=== PATIENT | male | born 1985 | race Caucasian/White ===

== ENCOUNTER 2018-02-13 15:01 | Observation (INO) ==
[2018-02-13] MEDS ORDERED: Magnesium Sulfate Inj 2 GM in Sodium Chlor 0.9% Inj 96 ML IV.SIG ONE (19:00)
--- NOTE | 2018-02-13 21:43 | P.PNADD ---
Addendum to Inpatient Note Reason for Addendum: Additional Documentation Additional information: Added PRN albuterol nebulizer and patient breathing well now. IV Mag was not given in [place] and has been ordered for here. The nurse was concerned about giving it without a magnesium level check (which I suspect will be normal given his other lab results). This seems like a reasonable request as the patient's breathing is quite stable at this point in time. She will give Magnesium once the mag level results as long as it's not normal high or high. .
[2018-02-13] MEDS: MethylPREDNISolone Sod Succinate Inj 40 MG/ML Vial IV.PUSH SCH (22:45)
[2018-02-14] MEDS: MethylPREDNISolone Sod Succinate Inj 40 MG/ML Vial IV.PUSH SCH (05:47)
[2018-02-14 10:18] VITALS: RESP 20
--- NOTE | 2018-02-14 10:46 | P.HP ---
History of Present Illness Primary Care Physician: UNKNOWN Chief Complaint: Failed outpatient treatment for pneumonia History of Present Illness: This is a very pleasant 32-year-old male patient with a known medical history of Gisele's disease, hypothyroidism and asthma who presented to the ED with complaints of worsening shortness of breath for the last several days. He states that about a week ago he saw his primary care physician, a chest x-ray was done with a diagnosis of pneumonia and treated with p.o. Levaquin and prednisone. Patient states that over the week he has had fevers up to 102.6, worsening shortness of breath especially with exertion but also at rest, as well as a nonproductive cough that has not improved and continued wheezing despite steroid and antibiotics. Patient also has an inhaler at home which he has been using more often for shortness of breath and he states that there has not been any relief. Patient was diagnosed with asthma at a young age, he states that this has been very well controlled over the course of his life, he states he uses rescue inhaler probably every 6 months. 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 It should be noted that patient had a diagnosis of pneumonia roughly 1-1/2 years ago as well and was treated with antibiotics and steroids. Patient does also admit a history of being in the [employer] and overseas in [place] for 39 months at an earlier time of his life. He states that he is concerned that he might have some type of infection and ingestion of toxins or chemicals that might be contributing to his symptoms every year. Chest x-ray on presentation shows resolution of pneumonia. Patient does state that he still has some shortness of breath and occasional wheezing. Inpatient Certification: I certify that the inpatient services were ordered in accordance with Medicare regulations governing the order. This includes certification that hospital inpatient services are reasonable and necessary and in the case of services not specified as inpatient-only under 42 CFR 419.22(n), that they are appropriately provided as inpatient services in accordance to with the 2-midnight benchmark under 43 CFR 412.3(e) Estimated Total Length of Stay (Days): 2 Plans for Post Hospital Care: Home Review of Systems All other systems reviewed negative except as stated in HPI PMFSH - History History Provided By: Patient - Medical History Medical History: Medical History (Last Reviewed 02/14/18 @ 11:09 by Sudha Gurrola) Asthma Gisele's disease Hypothyroid - Surgical History Surgical History: Surgical History (Last Reviewed 02/14/18 @ 11:09 by Sudha Gurrola) No history of previous surgery - Family History Family History: Family History (Last Updated 02/14/18 @ 11:09 by Sudha Gurrola) Other Cardiovascular disease - Social History I have reviewed the patient's Social History: Yes - Tobacco History Second Hand Smoke Exposure: No Tobacco Use In Past 30 Days: No Smoking Status: Never smoker - Alcohol History How Often Do You Have a Drink Containing Alcohol: Monthly or less - Substance Use History Substance History: No History of Abuse Medications and Allergies Active Medications: Active Medications Albuterol (Duoneb Neb (Elvira)) 1 ampul NEB Q4HR WHILE AWAKE NEB ELVIRA Last Admin: 02/14/18 07:15 Dose: 1 ampul Albuterol (Albuterol Neb (Prn)) 2.5 mg NEB Q2HR NEB PRN PRN Reason: SHORTNESS OF BREATH/WHEEZING Methylprednisolone Sodium Succinate (Solumedrol Inj) 40 mg IV.PUSH Q8HR ELVIRA Last Admin: 02/14/18 05:47 Dose: 40 mg Allergies Allergy/AdvReac Type Severity Reaction Status Date / Time No Known Allergies Allergy Verified 02/13/18 15:13 Home Medications Medication Instructions Recorded Confirmed Type albuterol sulfate 2 puff INHALATION Q4-6H PRN 02/13/18 02/14/18 History levofloxacin 500 mg PO DAILY 02/13/18 02/14/18 History levothyroxine [Synthroid] 88 mcg PO DAILY 02/13/18 02/14/18 History prednisone 10 PO PER PKG DIR 02/13/18 History Exam Vital signs: Vital Signs 02/13/18 19:44 02/13/18 20:00 02/14/18 00:00 Temperature 98.0 F 98.6 F Pulse Rate 76 76 91 H Respiratory Rate 18 20 18 Blood Pressure 140/84 140/84 Pulse Oximetry 98 94 L 94 L 02/14/18 07:16 02/14/18 08:00 Temperature 97.5 F L Pulse Rate 78 86 Respiratory Rate 18 20 Blood Pressure 132/79 Pulse Oximetry 97 Intake & Output 02/13/18 02/14/18 02/14/18 18:59 06:59 18:59 Weight 93 kg Other: # Voids 3 Weight On Admission 92.3 kg Narrative: GENERAL: Well-developed, well-nourished patient in NAD. SKIN: Warm and dry. No rash. HEAD: Normocephalic. Atraumatic. EYES: Pupils equal and round. No scleral icterus. No injection or drainage. ENT: No nasal bleeding or discharge. Mucous membranes pink and moist. NECK: Supple. Trachea midline. CARDIOVASCULAR: Regular rate and rhythm. S1, S2 noted. No murmur appreciated. RESPIRATORY: No accessory muscle use. Some expiratory wheezing and posterior bilateral lobes. Breath sounds equal bilaterally. GASTROINTESTINAL: Abdomen soft, non-tender, nondistended. Normoactive bowel sounds x4. MUSCULOSKELETAL: No obvious deformities. Extremities without clubbing, cyanosis , or edema. NEUROLOGICAL: Awake and alert. No obvious cranial nerve deficits. Motor grossly within normal limits. 5/5 muscle strength in bilateral upper and lower extremities. Normal speech. PSYCHIATRIC: Appropriate mood and affect; insight and judgment normal. Results - Labs Labs: Laboratory Results - last 24 hr 02/13/18 22:22 Magnesium 2.3 Caprini VTE Risk Assessment Caprini VTE Risk Assessment: No/Low Risk (score <= 1) Caprini Risk Assessment Model: Point Value = 1 Point Value = 2 Point Value = 3 Point Value = 5 Age 41-60 Minor surgery BMI > 25 kg/m2 Swollen legs Varicose veins or History of unexplained or recurrent spontaneous Oral contraceptives or hormone replacement Sepsis (< 1 month) Serious lung disease, including pneumonia (< 1 month) Abnormal pulmonary function Acute myocardial infarction Congestive heart failure (< 1 month) History of inflammatory bowel disease Medical patient at bed rest Age 61-74 Arthroscopic surgery Major open surgery (> 45 min) Laparoscopic surgery (> 45 min) Malignancy Confined to bed (> 72 hours) Immobilizing plaster cast Central venous access Age >= 75 History of VTE Family history of VTE Factor V Leiden Prothrombin [id number] Lupus anticoagulant Anticardiolipin antibodies Elevated serum homocysteine Heparin-induced thrombocytopenia Other congenital or acquired thrombophilia Stroke (< 1 month) Elective arthroplasty Hip, pelvis, or leg fracture Acute spinal cord injury (< 1 month) Prophylaxis Regimen: Total Risk Factor Score Risk Level Prophylaxis Regimen 0-1 Low Early ambulation 2 Moderate Order ONE of the following: *Sequential Compression Device (SCD) *Heparin 5000 units SQ BID 3-4 Higher Order ONE of the following medications: *Heparin 5000 units SQ TID *Enoxaparin/Lovenox 40 mg SQ daily (WT < 150 kg, CrCl > 30 mL/min) *Enoxaparin/Lovenox 30 mg SQ daily (WT < 150 kg, CrCl > 10-29 mL/min) *Enoxaparin/Lovenox 30 mg SQ BID (WT < 150 kg, CrCl > 30 mL/min) AND/OR *Sequential Compression Device (SCD) 5 or more Highest Order ONE of the following medications: *Heparin 5000 units SQ TID (Preferred with Epidurals) *Enoxaparin/Lovenox 40 mg SQ daily (WT < 150 kg, CrCl > 30 mL/min) *Enoxaparin/Lovenox 30 mg SQ daily (WT < 150 kg, CrCl > 10-29 mL/min) *Enoxaparin/Lovenox 30 mg SQ BID (WT < 150 kg, CrCl > 30 mL/min) AND *Sequential Compression Device (SCD) Assessment and Plan - Plan This is a 32-year-old male patient with Asthma with possible exacerbation Recent pneumonia diagnosis, failed outpatient treatment -Patient states that he is finished his course of Levaquin and p.o. steroids for diagnosis of pneumonia week ago. He states that he still has continued shortness of breath despite finishing his medications. -Chest x-ray reviewed on presentation showing no acute disease, pneumonia seems to be resolved. -Patient was given a dose of IV steroids in ED. Continued on IV steroids scheduled. -Patient does have a history of being overseas in [place] for 39 months, is concerned not this may be possibly contributing to his symptoms every year. CT scan of the chest will be done for continued complaints of shortness of breath. -Patient finished a dose of Levaquin, will attempt Augmentin. -Continue duo nebs. -Supportive care. Hypothyroidism Gisele's disease -Continue home levothyroxine. Stable. DVT prophylaxis: SCDs. Discharge Planning: Possible DC later today if clinically improved. Awaiting CT.
[2018-02-14] MEDS ORDERED: Amoxicillin/Clavulanate 875/125 MG Tablet PO SCH (11:30)
--- NOTE | 2018-02-14 11:40 | CT ---
EXAM DATE: 02/14/2018 11:35 AM EST AGE/SEX: 32 years / Male INDICATIONS: Dry cough. CLINICAL DATA: This is the patient's initial encounter. Patient reports that signs and symptoms have been present for 4 - 6 days and indicates a pain score of 0/10. MEDICAL/SURGICAL HISTORY: Asthma. Hypothyroidism. None. RADIATION DOSE: 17.88 CTDI (mGy) COMPARISON: [facility], CHEST 1V SINGLE AP, 02/13/2018. . TECHNIQUE: Multiple contiguous axial images were obtained through the chest without contrast. Image s were obtained in suspended respiration using multiple row detector helical technique. Using automa haley exposure control and adjustment of the mA and/or kV according to patient size, radiation dose was kept as low as reasonably achievable to obtain optimal diagnostic quality images. DICOM format imag e data is available electronically for review and comparison. FINDINGS: Lungs: 3 mm noncalcified nodules identified within the right upper lobe. The remainder of the lungs are clear. Mediastinum: There is good visualization of the great vessels of the middle mediastinum. No evidenc e of mediastinal or hilar adenopathy/mass. Pleurae: No evidence of focal thickening or pleural effusion. Axillae: Unremarkable. Bony Structures: Unremarkable. Miscellaneous: The examination was extended to include the upper abdomen, and both adrenal glands ar e normal in size and configuration. CONCLUSION: 1. Essentially normal exam. Single small noncalcified nodules identified within the right upper lobe consistent with a 9 granuloma. Electronically signed by: Nevin Martin MD 02/14/2018 11:39 AM EST
[2018-02-14 15:18] VITALS: BP 137/80; PULSE 78; TEMP 97.3; O2SAT 95
== END 2018-02-14 13:55 | disposition home or self-care (01) ==
LOC: PHEDDLT 15:01 → INTOOBSV 19:33 → PH3 19:33
PROVIDERS: ADMIT Hospitalist; ATTEND Hospitalist